=== PATIENT | male | born 1945 | race Caucasian/White ===

== ENCOUNTER 2025-10-08 09:19 | Inpatient (IN) | payer MEDICARE, BC ==
[~2025-10-08] VITALS: Ht 162.6 cm; Wt 96.7 kg
[2025-10-08] VITALS (12 sets, daily range): BP systolic 109–124; BP diastolic 54–80; TEMP 97.5–98.2; O2SAT 94–100
[2025-10-08] MEDS ORDERED: ALBUTEROL FS 2.5 MG/3 ML VIAL.NEB ONE (09:29)
[2025-10-08] MEDS: ALBUTEROL FS 2.5 MG/3 ML VIAL.NEB NEB ONE (09:32)
[2025-10-08] MEDS: IPRATROPIUM NEB FS 0.5 MG/2.5 ML AMPUL.NEB NEB ONE (09:38)
[2025-10-08] MEDS ORDERED: IPRATROPIUM NEB FS 0.5 MG/2.5 ML AMPUL.NEB ONE (09:38)
[2025-10-08] MEDS ORDERED: ACETAMINOPHEN ES 500 MG TABLET ONE (09:47)
[2025-10-08] MEDS: PIPERACILLIN /TAZOBACTAM 3.375 G in IV D5W 50 ML IV ONE (09:54)
[2025-10-08 10:00] LABS: PLATELET COUNT (AUTO) 275 K/uL (150-450); RED BLOOD CELL COUNT(AUTO) 3.94 MIL/uL (4.5-6.0); RED CELL DISTRIBUTION WIDTH 14.4 % (11.5-15.0); WHITE BLOOD COUNT (AUTO) 20.1 K/uL (4.3-11.0)
[2025-10-08] MEDS: ACETAMINOPHEN ES 500 MG TABLET PO ONE (10:00)
[2025-10-08] MEDS ORDERED: ALLO100T PO (10:13)
[2025-10-08] MEDS ORDERED: ALBU90AE IH (10:13)
[2025-10-08] MEDS ORDERED: FLUT12AE3 INH (10:13)
[2025-10-08 10:14] LABS: LACTIC ACID 0.8 mmol/L (0.4-2.0)
[2025-10-08] MEDS: IV NS 0.9% 1,000 ML BAG IV ONE (10:15)
[2025-10-08 10:17] LABS: CALCIUM, SERUM 8.8 mg/dL (8.5-10.1); CREATININE 1.0 mg/dL (0.6-1.3); SODIUM SERUM 141 mmol/L (136-145); UREA NITROGEN, BLOOD 13 mg/dL (7-18)
[2025-10-08 10:22] LABS: ASPARTATE AMINOTRANSFERASE 32 U/L (15-37); TOTAL PROTEIN, SERUM 7.7 g/dL (6.4-8.2)
[2025-10-08] MEDS: VANCOMYCIN 1 GM in IV D5W 250 ML IV ONE (10:40)
[2025-10-08 10:41] LABS: INR 1.18 (0.91-1.10)
[2025-10-08] MEDS ORDERED: ONDANSETRON HCL/PF 4 MG/2 ML VIAL IVP PRN (12:30)
[2025-10-08] MEDS: ALBUTEROL FS 2.5 MG/3 ML VIAL.NEB NEB SCH (12:30)
[2025-10-08] MEDS: IPRATROPIUM NEB FS 0.5 MG/2.5 ML AMPUL.NEB NEB SCH (12:30)
[2025-10-08] MEDS ORDERED: Z GUARD REMEDY 4 OZ OINT TP PRN (12:30)
[2025-10-08] MEDS ORDERED: ACETAMINOPHEN 325 MG TABLET PO PRN (12:30)
[2025-10-08] MEDS: ENOXAPARIN SODIUM 40 MG/0.4 ML DISP.SYRIN SQ SCH (13:05)
[2025-10-08] MEDS: IV NS 0.9% 1,000 ML IV PRN (14:08)
[2025-10-08] MEDS: PIPERACILLIN /TAZOBACTAM 3.375 G in IV D5W 50 ML IV SCH (17:39)
[2025-10-08 23:04] LABS: APPEARANCE,URINE TURBID (CLEAR); BLOOD, URINE NEGATIVE Ery/uL (NEGATIVE); LEUKOCYTE ESTERASE ,URINE NEGATIVE (NEGATIVE); NITRITE, URINE POSITIVE (NEGATIVE); UGLUCOSE NEGATIVE (NEGATIVE)
[2025-10-08 23:43] LABS: ADD URINE CULTURE YES; SQUAMOUS EPITHELIAL CELL,UR 0-2 /HPF (None Seen)
[2025-10-09] VITALS (10 sets, daily range): BP systolic 104–122; BP diastolic 53–73; TEMP 97.9–98.2; O2SAT 97–100
[2025-10-09 08:21] LABS: PLATELET COUNT (AUTO) 246 K/uL (150-450); RED BLOOD CELL COUNT(AUTO) 3.36 MIL/uL (4.5-6.0); RED CELL DISTRIBUTION WIDTH 14.2 % (11.5-15.0); WHITE BLOOD COUNT (AUTO) 16.5 K/uL (4.3-11.0)
[2025-10-09 08:28] LABS: ABG OXYGEN SATURATION 96.1 % (94.0-98.0); ABG PCO2 50.6 mmHg (35.0-48.0); ABG PH 7.399 (7.350-7.450); ABG PO2 83.6 mmHg (83.0-108.0); ABG TOTAL HEMOGLOBIN 12.2 G/dL (13.5-17.5); FLOW, BLOOD GAS 4.00 L/min (0.00-30.00); FRACTIONATED INSPIRED OXYGEN 36.0 %; SITE, ABG RIGHT RADIAL
[2025-10-09] MEDS: PANTOPRAZOLE 40 MG TABLET.DR PO SCH (08:31)
[2025-10-09 08:56] LABS: LDL 58.0 mg/dL (0-99)
[2025-10-09 09:03] LABS: CALCIUM, SERUM 8.3 mg/dL (8.5-10.1); CREATININE 1.0 mg/dL (0.6-1.3); PHOSPHORUS 2.5 mg/dL (2.5-4.9); SODIUM SERUM 141.0 mmol/L (136-145); UREA NITROGEN, BLOOD 14.0 mg/dL (7-18)
[2025-10-09] MEDS: PIPERACILLIN /TAZOBACTAM 3.375 G in IV D5W 100 ML IV SCH (11:42)
[2025-10-09] MEDS ORDERED: AMOX-430 PO (14:12)
== END 2025-10-09 18:17 | disposition home or self-care (01) | DRG 871 ==
LOC: ER 09:26 → TELE1 10:02
PROVIDERS: ADMIT Nurse Practitioner Acute Care; ATTEND Nurse Practitioner Acute Care
DX: A41.9 Sepsis, unspecified organism (principal); J96.21 Acute and chronic respiratory failure with hypoxia; J96.22 Acute and chronic respiratory failure with hypercapnia; Z99.81 Dependence on supplemental oxygen; Z86.74 Personal history of sudden cardiac arrest; N39.0 Urinary tract infection, site not specified; B96.89 Other specified bacterial agents as the cause of diseases classified elsewhere; E66.2 Morbid (severe) obesity with alveolar hypoventilation; J45.909 Unspecified asthma, uncomplicated; N40.0 Benign prostatic hyperplasia without lower urinary tract symptoms; Z20.822 Contact with and (suspected) exposure to COVID-19; Z88.5 Allergy status to narcotic agent; Z88.1 Allergy status to other antibiotic agents; Z87.891 Personal history of nicotine dependence; Z98.1 Arthrodesis status; Z79.51 Long term (current) use of inhaled steroids; Z79.899 Other long term (current) drug therapy; Z86.16 Personal history of COVID-19; Z82.49 Family history of ischemic heart disease and other diseases of the circulatory system; Z80.3 Family history of malignant neoplasm of breast; M10.9 Gout, unspecified; M17.0 Bilateral primary osteoarthritis of knee; Z98.890 Other specified postprocedural states; Z90.49 Acquired absence of other specified parts of digestive tract; Z87.19 Personal history of other diseases of the digestive system; Z68.30 Body mass index [BMI] 30.0-30.9, adult; Z91.89 Other specified personal risk factors, not elsewhere classified; K64.9 Unspecified hemorrhoids; K43.9 Ventral hernia without obstruction or gangrene; J47.9 Bronchiectasis, uncomplicated; K40.90 Unilateral inguinal hernia, without obstruction or gangrene, not specified as recurrent
CPT/HCPCS: 36415; 36600; 71045-TC; 80048-TC; 80061-TC; 80076-TC; 81001; 82803-TC; 83605-TC; 83735-TC; 84100-TC; 85025-TC; 85730-TC; 87040-TC; 87086-TC; 94799-TC; A4223; G0378; J1650; J2543; J2919; J3373; J7030; J7060